=== PATIENT | female | born 1995 | race Caucasian/White ===

== ENCOUNTER 2017-12-08 11:04 | Inpatient (IN) | payer OTHER ==
[~2017-12-08] VITALS: Ht 170.2 cm; Wt 112.0 kg
[2017-12-08 12:17] LABS: HEMATOCRIT 42.6 % (36.0-46.0); HEMOGLOBIN 14.1 G/DL (11.9-15.5); MCH 31.3 PG (29.0-34.0); MCHC 33.1 G/DL (30.0-36.0); MCV 94.7 FL (83-99); PLATELET COUNT 227 K/uL (156-360); RBC DIS.WIDTH-CV 13.3 % (11.8-14.6); RBC DIS.WIDTH-SD 46.3 % (39-53); WHITE BLOOD COUNT 13.9 K/uL (4.1-10.2)
[2017-12-08 12:22] VITALS: BP 167/93
[2017-12-08 13:29] LABS: ALKALINE PHOSPHATASE 51 IU/L (3-129); ALT (GPT) 15 IU/L (3-49); AST (GOT) 13 IU/L (2-34); CHLORIDE 108 MEQ/L (99-109); CREATININE 0.8 MG/DL (0.6-1.3); GFR ESTIMATE (CALCULATED) > 59 mL/min/; GLUCOSE 100 mg/dL (70-99); POTASSIUM 4.6 MEQ/L (3.7-5.4); SODIUM 139 MEQ/L (136-147); TOTAL BILIRUBIN 0.3 MG/DL (0.0-1.0); TOTAL PROTEIN 5.8 G/DL (6.4-8.3); UREA NITROGEN (BUN) 19 mg/dL (9-23)
[2017-12-08 15:00] LABS: APPEARANCE SL.HAZY ((CLEAR)); BILIRUBIN NEGATIVE; BLOOD LARGE; COLOR YELLOW ((YELLOW)); GLUCOSE (STRIP) NEGATIVE; KETONES NEGATIVE; LEUKOCYTES NEGATIVE; NITRITE NEGATIVE; PROTEIN (STRIP) 30; UROBILINOGEN 0.2 MG/DL (0.2-1.0)
[2017-12-08 15:01] LABS: SPECIFIC GRAVITY > 1.060 (1.000-1.030)
[2017-12-08 15:15] VITALS: BP 152/104
[2017-12-08 15:48] LABS: BACTERIA RARE /HPF; EPITHELIAL CELLS 1+ /HPF; MUCUS 1+ /LPF; RED BLOOD CELLS 40-50 /HPF (0-5); UCUL ADDED? NO; WHITE BLOOD CELLS 0-5 /HPF (0-5)
[2017-12-09 00:09] VITALS: BP 164/98
[2017-12-09 07:14] VITALS: BP 139/78
[2017-12-09 10:49] VITALS: BP 139/78
[2017-12-09] MEDS ORDERED: IBU600 MG PO (12:11)
[2017-12-09] MEDS ORDERED: TAMSULOSIN HCL0.4 MG PO (12:11)
[2017-12-09] MEDS ORDERED: ENDOCET 5-3251 EACH PO (12:11)
[2017-12-09] MEDS ORDERED: ZOFRAN4 MG PO (12:11)
== END 2017-12-09 13:33 | disposition home or self-care (01) | DRG 694 ==
LOC: 5SOUTH 11:04 → ENRESERV 11:09 → 5SOUTH 11:31
PROVIDERS: Physician Assistant Medical; Urology
DX: N13.2 Hydronephrosis with renal and ureteral calculous obstruction (principal); Z87.891 Personal history of nicotine dependence; Z87.442 Personal history of urinary calculi
CPT/HCPCS: 74018; 80053; 81003; 85027; J1170; J1644; J1885; J2270; J2405; J7120

== ENCOUNTER 2017-12-22 12:00 | Day surgery (SDC) | payer OTHER ==
[~2017-12-22] VITALS: Ht 170.2 cm; Wt 109.8 kg
[~2017-12-22 12:00] MED LIST: ENDOCET 5-3251 EACH PO; IBU600 MG PO; LORTAB 5-325 M1 EACH PO; TAMSULOSIN HCL0.4 MG PO; ZOFRAN4 MG PO
[2017-12-22 12:30] VITALS: BP 134/84
[2017-12-22 17:52] VITALS: BP 140/87
[2017-12-22 18:46] VITALS: BP 141/90
== END 2017-12-22 19:10 | disposition home or self-care (01) ==
LOC: SDC 12:00
PROVIDERS: Urology
DX: N20.1 Calculus of ureter (principal); Z87.891 Personal history of nicotine dependence
CPT/HCPCS: 81025; 82365 90; C1758; C2625; J1170; J1580; J1885; J2250; J3010; J7050

== ENCOUNTER → 2018-01-04 | Outpatient (CLI) | payer OTHER | END | disposition home or self-care (01) | LOC: RAD 09:37 → SDC 09:37 → OPR 10:00 → AMB 10:00 → RAD 11:30 → AMB 13:00 | PROC: 0TF3XZZ Fragmentation in Right Kidney Pelvis, External Approach (ICD-10-PCS; principal; 2018-01-04) | DX: N20.0 Calculus of kidney (principal); R10.31 Right lower quadrant pain; Z87.891 Personal history of nicotine dependence; Z90.49 Acquired absence of other specified parts of digestive tract | CPT/HCPCS: 74019; J3010 ==